=== PATIENT | female | born 1945 | race Caucasian/White ===

== ENCOUNTER 2017-05-16 15:21 | Emergency (ER) | payer MEDICARE ==
[~2017-05-16] VITALS: Ht 152.4 cm; Wt 75.3 kg
[~2017-05-16 15:21] MED LIST: BISOPROLOL-HCT1 EAC1 PO; CEROVITE SENIO1 EACH PO; LORAZEPAM1 MG PO; LUTEIN20 M1 PO; TRAMADOL HCL50 MG PO; ZOFRAN ODT4 MG SL; ZYRTEC10 MG PO
== END 2017-05-16 15:40 | disposition home or self-care (01) ==
LOC: ED 15:21
DX: J02.9 Acute pharyngitis, unspecified (principal)

== ENCOUNTER 2017-05-26 14:26 | Emergency (ER) | payer MEDICARE ==
[~2017-05-26] VITALS: Ht 152.4 cm; Wt 75.3 kg
== END 2017-05-26 15:19 | disposition home or self-care (01) ==
LOC: ED 14:26
DX: B34.9 Viral infection, unspecified (principal); I10 Essential (primary) hypertension; Z90.710 Acquired absence of both cervix and uterus; Z88.8 Allergy status to other drugs, medicaments and biological substances; Z79.899 Other long term (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
CPT/HCPCS: 99282

== ENCOUNTER 2019-08-07 12:59 | Emergency (ER) | payer MEDICARE ==
[~2019-08-07] VITALS: Ht 152.4 cm; Wt 75.3 kg
[~2019-08-07 12:59] MED LIST changes: +CEPHALEXIN500 MG PO; +ZITHROMAX250 MG PO
--- OUTSIDE RECORDS SUMMARY | 2019-08-07 13:02 | XMS ---
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 Jessica VISIT COUNT (12 MO.) 3 [facility] TOTAL 3 NOTE: Visits indicate total known visits. 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
[2019-08-07] MEDS ORDERED: CYCLOBENZAPRINE5 MG PO (13:21)
== END 2019-08-07 13:39 | disposition home or self-care (01) ==
LOC: ED 12:59
DX: J02.9 Acute pharyngitis, unspecified (principal)

== ENCOUNTER 2019-11-12 16:17 | Emergency (ER) | payer MEDICARE ==
[~2019-11-12] VITALS: Ht 152.4 cm; Wt 75.3 kg
[~2019-11-12 16:17] MED LIST changes: +CYCLOBENZAPRINE5 MG PO
--- OUTSIDE RECORDS SUMMARY | 2019-11-12 16:20 | XMS ---
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 ERaoul VISIT COUNT (12 MO.) Erasmo Freeman TOTAL 4 NOTE: Visits indicate total known visits. ED/UCC VISIT TRACKING (12 MO.) 11/12/2019 16:18 [facility] TYPE: Emergency COMPLAINT: - SOB 08/07/2019 13:00 [facility] TYPE: Emergency COMPLAINT: - THROAT PAIN AND SWELLING DIAGNOSES: - Acute pharyngitis, unspecified - Acute pharyngitis, unspecified 08/01/2019 20:19 [facility] TYPE: Emergency COMPLAINT: - POSS ALLERGIC REACTION DIAGNOSES: - Adverse effect of cephalosporins and other beta-lactam antibi - Pain in throat - Other prison (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 - Pain in throat - Essential (primary) hypertension 07/04/2019 19:59 [facility] [place] TYPE: Emergency COMPLAINT: - VAGINAL BLEEDING DIAGNOSES: - Polyp of vagina - Essential (primary) hypertension - Abnormal uterine and vaginal bleeding, unspecified - Other prison (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 INPATIENT VISIT TRACKING (12 MO.) No inpatient visits to display in this time frame [id number]
[2019-11-12] MEDS ORDERED: QVAR REDIHALE10.6 GM INH (17:22)
[2019-11-12] MEDS ORDERED: PREDNISONE20 MG PO (17:22)
[2019-11-12] MEDS ORDERED: VENTOLIN HFA18 GM INH (17:49)
[2019-11-12] MEDS ORDERED: SINGULAIR10 MG PO (17:50)
== END 2019-11-12 18:00 | disposition home or self-care (01) ==
LOC: ED 16:17
DX: J45.901 Unspecified asthma with (acute) exacerbation (principal); I10 Essential (primary) hypertension; Z88.1 Allergy status to other antibiotic agents; Z91.013 Allergy to seafood; Z88.8 Allergy status to other drugs, medicaments and biological substances; Z79.899 Other long term (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
CPT/HCPCS: 94664; 99283; J7512

== ENCOUNTER 2019-12-02 11:24 | Emergency (ER) | payer MEDICARE ==
[~2019-12-02] VITALS: Ht 152.4 cm; Wt 75.3 kg
[~2019-12-02 11:24] MED LIST changes: +PREDNISONE20 MG PO; +QVAR REDIHALE10.6 GM INH; +SINGULAIR10 MG PO; +VENTOLIN HFA18 GM INH
--- OUTSIDE RECORDS SUMMARY | 2019-12-02 11:26 | XMS ---
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 - 2 Visits in 30 Days CARE PROVIDERS JOSE ROBLES [facility] 07/05/2019-Current PHONE: [phone] KATIE SHERMAN Internal Medicine 08/08/2019-Current PHONE: [phone] Dot has no Care Guidelines for this patient. ERaoul VISIT COUNT (12 MO.) Tyshawn [facility] TOTAL 5 NOTE: Visits indicate total known visits. ED/UCC VISIT TRACKING (12 MO.) 12/02/2019 11:24 [facility] TYPE: Emergency COMPLAINT: - ALLERGIES 11/12/2019 16:18 [facility] TYPE: Emergency COMPLAINT: - SOB DIAGNOSES: - Allergy to seafood - Unspecified asthma with (acute) exacerbation - Allergy status to other antibiotic agents status - Other chest pain - Allergy status to other drugs, medicaments and biological sub - Other detention (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 - Essential (primary) hypertension 08/07/2019 13:00 [facility] [place] TYPE: Emergency COMPLAINT: - THROAT PAIN AND SWELLING DIAGNOSES: - Acute pharyngitis, unspecified - Acute pharyngitis, unspecified 08/01/2019 20:19 [facility] TYPE: Emergency COMPLAINT: - POSS ALLERGIC REACTION DIAGNOSES: - Adverse effect of cephalosporins and other beta-lactam antibi - Pain in throat - 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
[2019-12-02] MEDS ORDERED: LORAZEPAM0.5 MG PO (11:39)
[2019-12-02] MEDS ORDERED: IPRAT-ALBUT 0.5-3 ML INH (11:39)
--- NOTE | 2019-12-04 21:06 | PATH ---
[facility] [address] [place], [place] [address] Signed ORDERING PHYSICIAN: Charly Kirkpatrick MD PATIENT NAME: MARTIN WALSHE GENDER: Hien : 1945 SPECIMEN(S): No Source Given MOLECULAR PATHOLOGY RESULTS: SARS-CoV-2 Not Detected ADDITIONAL NOTES.: The [place] Fusion SARS-CoV-2 Assay is a multiplex real-time PCR (RT-PCR) in vitro diagnostic test intended for the qualitative detection of RNA from SARS-CoV-2 from individuals who meet COVID-19 clinical and/or epidemiological criteria. In general, SARS-CoV-2 RNA can be detected during the acute phase of infection. Positive results indicate the presence of SARS-CoV-2 RNA. Clinical correlation with patient history and other diagnostic information is necessary to determine patient infection status. Positive results do not rule out bacterial infection or co-infection with other viruses. Negative results do not preclude SARS-CoV-2 infection and should not be used as the sole basis for patient management decisions. Negative results must be combined with other clinical observations, patient history, and epidemiological information. The [place] Fusion SARS-CoV-2 Assay is not yet approved or cleared by the [place] FDA. When there are no FDA-approved or cleared tests available, and other criteria are met, FDA can make tests available under an emergency access mechanism called an Emergency Use Authorization (EUA). The EUA for this test is supported by the [place] of Health and Human Service's (HHS's) declaration that circumstances exist to justify the emergency use of in vitro diagnostics for the detection and/or diagnosis of the virus that causes COVID-19. This EUA will remain in effect for the duration of the COVID-19 declaration justifying emergency of IVDs, unless it is terminated or revoked by FDA, after which the test may no longer be used. The [place] Fusion SARS-CoV-2 Assay is for use only under EUA in US laboratories certified under the Clinical Laboratory Improvement Amendments of 1988 (CLIA) to perform high complexity tests. [facility] is certified under CLIA to perform high complexity PATIENT NAME: MARTIN WALSH PATHOLOGY DATE OF : 47 REPORT #: [id number] PHYSICIAN: ONEAL HERNÁNDEZ PCP: KATIE SHERMAN REPORT IS CONFIDENTIAL AND NOT TO BE RELEASED WITHOUT AUTHORIZATION [address] [address] Signed clinical laboratory testing. PERFORMING LABORATORY.: Molecular testing was performed by [facility] [address] [place], [place] [address] [address] (Clinical Supervisor: Alejo Briseno D.O.; CLIA#: [id number]) Diagnostician: System Interface Pathologist Electronically Signed 12/04/2019 Copies: ~ PATIENT NAME: MARTIN WALSH PATHOLOGY DATE OF : 47 REPORT #: [id number] PHYSICIAN: ONEAL HERNÁNDEZ PCP: KATIE SHERMAN REPORT IS CONFIDENTIAL AND NOT TO BE RELEASED WITHOUT AUTHORIZATION
== END 2019-12-02 12:28 | disposition home or self-care (01) ==
LOC: ED 11:24
DX: J45.909 Unspecified asthma, uncomplicated (principal); I10 Essential (primary) hypertension; Z88.1 Allergy status to other antibiotic agents; Z91.018 Allergy to other foods; Z88.8 Allergy status to other drugs, medicaments and biological substances; Z79.899 Other long term (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
CPT/HCPCS: 99283; C9803

== ENCOUNTER 2019-12-15 14:26 | Emergency (ER) | payer MEDICARE ==
[~2019-12-15] VITALS: Ht 152.4 cm; Wt 75.3 kg
[~2019-12-15 14:26] MED LIST changes: +IPRAT-ALBUT 0.5-3 ML INH; +LORAZEPAM0.5 MG PO
--- OUTSIDE RECORDS SUMMARY | 2019-12-15 14:28 | XMS ---
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 E.Zohaib VISIT COUNT (12 MO.) [address] [place] [address] TOTAL 6 NOTE: Visits indicate total known visits. ED/UCC VISIT TRACKING (12 MO.) 12/15/2019 14:26 [facility] TYPE: Emergency COMPLAINT: - FALL 12/02/2019 11:24 [facility] TYPE: Emergency COMPLAINT: - ALLERGIES DIAGNOSES: - Allergy status to other antibiotic agents status - Allergy to other foods - Other mcc (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 - Cough - Allergy status to other drugs, medicaments and biological sub - Essential (primary) hypertension - Unspecified asthma, uncomplicated 11/12/2019 16:18 [facility] TYPE: Emergency COMPLAINT: - SOB DIAGNOSES: - Allergy to seafood - Unspecified asthma with (acute) exacerbation - Allergy status to other antibiotic agents status - Other chest pain - Allergy status to other drugs, medicaments and biological sub - Other 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 (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 - Essential (primary) hypertension 08/07/2019 13:00 [facility] TYPE: Emergency COMPLAINT: - THROAT PAIN AND SWELLING DIAGNOSES: - Acute pharyngitis, unspecified - Acute pharyngitis, unspecified 08/01/2019 20:19 [facility] TYPE: Emergency COMPLAINT: - POSS ALLERGIC REACTION DIAGNOSES: - Adverse effect of cephalosporins and other beta-lactam antibi - Pain in throat - Other mcc (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 - Pain in throat - Essential (primary) hypertension 07/04/2019 19:59 [facility] TYPE: Emergency COMPLAINT: - VAGINAL BLEEDING DIAGNOSES: - Polyp of vagina - Essential (primary) hypertension - Abnormal uterine and vaginal bleeding, unspecified - Other mcc (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 INPATIENT VISIT TRACKING (12 MO.) No inpatient visits to display in this time frame [id number]
== END 2019-12-15 15:45 | disposition home or self-care (01) ==
LOC: ED 14:26
DX: S43.401A Unspecified sprain of right shoulder joint, initial encounter (principal); S80.02XA Contusion of left knee, initial encounter; S80.01XA Contusion of right knee, initial encounter; I10 Essential (primary) hypertension; J45.909 Unspecified asthma, uncomplicated; Z88.1 Allergy status to other antibiotic agents; Z88.8 Allergy status to other drugs, medicaments and biological substances; Z79.899 Other long term (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; W18.30XA Fall on same level, unspecified, initial encounter
CPT/HCPCS: 99283

== ENCOUNTER 2020-04-29 22:41 | Emergency (ER) | payer MEDICARE ==
[~2020-04-29] VITALS: Ht 152.4 cm; Wt 75.3 kg
--- OUTSIDE RECORDS SUMMARY | 2020-04-29 22:48 | XMS ---
PreManage Notification: MARTIN WALSH Security Certified Medical Dosimetrist Events No recent Security Events currently on file CRITERIA MET - [facility] CARE PROVIDERS MARGARET [facility] 07/05/2019-Current PHONE: [phone] KATIE SHERMAN Internal Medicine 08/08/2019-Current PHONE: [phone] Dot has no Care Guidelines for this patient. Care History Medical/Surgical 12/18/2019 [facility] - CHW CONTACTED PATIENT DUE TO RECENT FALL IN THE HOME- PATIENT STATED SHE HAS HER WHO IS AT HOME TAKING CARE OF HER. - PATIENT WILL BE CONTACTING HER PCP OFFICE BUT IT TAKES TIME TO BE SEEN - CHW SUGGESTED POSSIBLY CHANGING PROVIDERS TO LOCAL AREA IN [place]. PROVIDED PROVIDER AVAILABILITY-PATIENT STATED SHE WOULD LOOK INTO IT BUT IS NOT FEELING UP TO IT AT THE MOMENT. E.D. VISIT COUNT (12 MO.) [address] [facility] TOTAL 7 NOTE: Visits indicate total known visits. ED/UCC VISIT TRACKING (12 MO.) 04/29/2020 22:47 [facility] TYPE: Emergency COMPLAINT: - THROAT SWELLING 12/15/2019 14:26 [facility] TYPE: Emergency COMPLAINT: - FALL DIAGNOSES: - Fall on same level, unspecified, initial encounter - Pain in right shoulder - Essential (primary) hypertension - Contusion of right knee, initial encounter - Unspecified asthma, uncomplicated - Other correction (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 - Contusion of left knee, initial encounter - Allergy status to other antibiotic agents - Unspecified sprain of right shoulder joint, initial encounter - Allergy status to other drugs, medicaments and biological substances 12/02/2019 11:24 [facility] TYPE: Emergency COMPLAINT: - ALLERGIES DIAGNOSES: - Allergy status to other antibiotic agents - Contact with and (suspected) exposure to other viral communicable diseases - Allergy to other foods - Other correction (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 - Cough - Allergy status to other drugs, medicaments and biological substances - Essential (primary) hypertension - Unspecified asthma, uncomplicated 11/12/2019 16:18 [facility] TYPE: Emergency COMPLAINT: - SOB DIAGNOSES: - Allergy to seafood - Unspecified asthma with (acute) exacerbation - Allergy status to other antibiotic agents - Other chest pain - Allergy status to other drugs, medicaments and biological substances - Other oil heaterman (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 - Essential (primary) hypertension 08/07/2019 13:00 [facility] TYPE: Emergency COMPLAINT: - THROAT PAIN AND SWELLING DIAGNOSES: - Acute pharyngitis, unspecified - Acute pharyngitis, unspecified 08/01/2019 20:19 [facility] TYPE: Emergency COMPLAINT: - POSS ALLERGIC REACTION DIAGNOSES: - Adverse effect of cephalosporins and other beta-lactam antibiotics, initial encounter - Pain in throat - Other oil heaterman (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
[2020-04-29] MEDS ORDERED: METOPROLOL SUCC50 MG PO (23:09)
[2020-04-29] MEDS ORDERED: CARBAMAZEPINE200 M3 PO (23:09)
[2020-04-29] MEDS ORDERED: ATIVAN0.5 MG PO (23:53)
== END 2020-04-30 | disposition home or self-care (01) ==
LOC: ED 22:41
DX: G89.29 Other chronic pain (principal); R68.84 Jaw pain; Z76.0 Encounter for issue of repeat prescription; I10 Essential (primary) hypertension; J45.909 Unspecified asthma, uncomplicated; Z88.1 Allergy status to other antibiotic agents; Z88.8 Allergy status to other drugs, medicaments and biological substances; Z91.011 Allergy to milk products; Z91.018 Allergy to other foods; Z79.899 Other long term (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
CPT/HCPCS: 99283

== ENCOUNTER 2020-11-17 17:45 | Emergency (ER) | payer MEDICARE ==
[~2020-11-17] VITALS: Ht 152.4 cm; Wt 75.3 kg
[~2020-11-17 17:45] MED LIST changes: +ATIVAN0.5 MG PO; +CARBAMAZEPINE200 M3 PO; +METOPROLOL SUCC50 MG PO
--- OUTSIDE RECORDS SUMMARY | 2020-11-17 17:48 | XMS ---
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 Care History Medical/Surgical 12/18/2019 [facility] - CHW CONTACTED PATIENT DUE TO RECENT FALL IN THE HOME- PATIENT STATED SHE HAS HER WHO IS AT HOME TAKING CARE OF HER. - PATIENT WILL BE CONTACTING HER PCP OFFICE BUT IT TAKES TIME TO BE SEEN - CHW SUGGESTED POSSIBLY CHANGING PROVIDERS TO LOCAL AREA IN [place]. PROVIDED PROVIDER AVAILABILITY-PATIENT STATED SHE WOULD LOOK INTO IT BUT IS NOT FEELING UP TO IT AT THE MOMENT. E.D. VISIT COUNT (12 MO.) 4 [facility] TOTAL 4 NOTE: Visits indicate total known visits. 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 - Unspecified asthma, uncomplicated - Jaw pain 12/15/2019 14:26 [facility] [place] TYPE: Emergency COMPLAINT: - FALL DIAGNOSES: - Fall on same level, unspecified, initial encounter - Pain in right shoulder - Essential (primary) hypertension - Contusion of right knee, initial encounter - Unspecified asthma, uncomplicated - Other prison (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 - Contusion of left [...] - Allergy to other foods - Other prison (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 - Cough - Allergy status to other drugs, medicaments and biological substances - Essential (primary) hypertension - Unspecified asthma, uncomplicated INPATIENT VISIT TRACKING (12 MO.) No inpatient visits to display in this time frame [id number]
[2020-11-17] MEDS ORDERED: L-LYSINE500 M2 PO (18:04)
[2020-11-17] MEDS ORDERED: MONTELUKAST SOD10 MG PO (18:05)
[2020-11-17] MEDS ORDERED: BACLOFEN10 MG PO (18:05)
[2020-11-17] MEDS ORDERED: MELATONIN5 M2 PO (18:06)
[2020-11-17] MEDS ORDERED: METOPROLOL SUC100 MG PO (18:07)
[2020-11-17] MEDS ORDERED: COD LIVER OIL1 EAC2 PO (18:08)
[2020-11-17] MEDS ORDERED: VITAMIN C1000 MG PO (18:09)
[2020-11-17] MEDS ORDERED: VITAMIN D3125 MC1 PO (18:09)
== END 2020-11-17 19:23 | disposition home or self-care (01) ==
LOC: ED 17:45
DX: L50.9 Urticaria, unspecified (principal); I10 Essential (primary) hypertension; J45.909 Unspecified asthma, uncomplicated; Z88.1 Allergy status to other antibiotic agents; Z88.8 Allergy status to other drugs, medicaments and biological substances; Z91.011 Allergy to milk products; Z91.018 Allergy to other foods; Z79.899 Other long term (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
CPT/HCPCS: 99282; Q0163

== ENCOUNTER 2021-04-07 12:47 | Emergency (ER) | payer MEDICARE ==
[~2021-04-07] VITALS: Ht 152.4 cm; Wt 75.3 kg
[~2021-04-07 12:47] MED LIST changes: +BACLOFEN10 MG PO; +COD LIVER OIL1 EAC2 PO; +L-LYSINE500 M2 PO; +MELATONIN5 M2 PO; +METOPROLOL SUC100 MG PO; +MONTELUKAST SOD10 MG PO; +VITAMIN C1000 MG PO; +VITAMIN D3125 MC1 PO
== END 2021-04-07 20:00 | disposition home or self-care (01) ==
LOC: ED 12:47
DX: N82.3 Fistula of vagina to large intestine (principal); I10 Essential (primary) hypertension; J45.909 Unspecified asthma, uncomplicated; Z88.1 Allergy status to other antibiotic agents; Z88.8 Allergy status to other drugs, medicaments and biological substances; Z91.011 Allergy to milk products; Z91.018 Allergy to other foods; Z79.899 Other long term (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
CPT/HCPCS: 99283

== ENCOUNTER 2022-07-24 01:01 | Emergency (ER) | payer MEDICARE ==
[~2022-07-24] VITALS: Ht 152.4 cm; Wt 76.2 kg
[~2022-07-24 01:01] MED LIST changes: +MACROBID 100 M100 MG PO; +TOPICAINE113 GM TOP
--- OUTSIDE RECORDS SUMMARY | 2022-07-24 01:02 | XMS ---
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 Care History Medical/Surgical 04/09/2021 [facility] - CHW CONTACTED PATIENT- PATIENT STATED SHE WAS IN CONTACT WITH PCP DR SHERMAN- HE IS SENDING HER REFERRAL TO THE COLORECTAL SURGEON IN [facility] . - PATIENT STATED SHE IS FEELING MUCH BETTER AND WILL CONTACT CHW IF ANY PROBLEMS SHOULD OCCUR WITH THE REFERRAL TO THE COLORECTAL SURGEON. 04/08/2021 [facility] - W RECVD CASE MANAGEMENT CONSULT- HELP PATIENT WITH FOLLOW UP TO A COLORECTAL SURGEON. - CHW CALLED PATIENT 2X- [phone]- NO ANSWER AND NO VOICEMAIL SET UP. 12/18/2019 [facility] - W CONTACTED PATIENT DUE TO RECENT FALL IN THE HOME- PATIENT STATED SHE HAS HER WHO IS AT HOME TAKING CARE OF HER. - PATIENT WILL BE CONTACTING HER PCP OFFICE BUT IT TAKES TIME TO BE SEEN - CHW SUGGESTED POSSIBLY CHANGING PROVIDERS TO LOCAL AREA IN [place]. PROVIDED PROVIDER AVAILABILITY-PATIENT STATED SHE WOULD LOOK INTO IT BUT IS NOT FEELING UP TO IT AT THE MOMENT. E.D. VISIT COUNT (12 MO.) 2 [facility] Freeman TOTAL 2 NOTE: Visits indicate total known visits. ED/UCC VISIT TRACKING (12 MO.) 07/24/2022 01:01 [facility] TYPE: Emergency COMPLAINT: - URINE PROBLEM 07/08/2022 10:35 [facility] TYPE: Emergency COMPLAINT: - VAGINAL PAIN DIAGNOSES: - Allergy to milk products - Allergy status to other antibiotic agents - Essential (primary) hypertension - Allergy status to other drugs, medicaments and biological substances - Unspecified asthma, uncomplicated - Allergy to other foods - Other termite treater (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 - Foreign body in urethra, initial encounter INPATIENT VISIT TRACKING (12 MO.) 07/28/2021 07:25 [facility] Rhiannon ZHANG TYPE: Surgery DIAGNOSES: - Fistula of vagina to large intestine [id number]
[2022-07-24] MEDS ORDERED: NITROFURANTOIN100 M1 PO (01:20)
[2022-07-24] MEDS ORDERED: HYDROCODON-ACE1 EA10 PO (02:33)
== END 2022-07-24 03:03 | disposition home or self-care (01) ==
LOC: ED 01:01
DX: T19.0XXA Foreign body in urethra, initial encounter (principal); I10 Essential (primary) hypertension; J45.909 Unspecified asthma, uncomplicated; Z88.1 Allergy status to other antibiotic agents; Z91.010 Allergy to peanuts; Z91.011 Allergy to milk products; Z88.8 Allergy status to other drugs, medicaments and biological substances; Z79.899 Other long term (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
CPT/HCPCS: 51701; 99283-25; A9270

== ENCOUNTER 2022-08-16 17:10 | Emergency (ER) | payer MEDICARE ==
[~2022-08-16] VITALS: Ht 152.4 cm; Wt 76.6 kg
[~2022-08-16 17:10] MED LIST changes: +HYDROCODON-ACE1 EA10 PO; +NITROFURANTOIN100 M1 PO
--- OUTSIDE RECORDS SUMMARY | 2022-08-16 17:12 | XMS ---
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 Care History Medical/Surgical 04/09/2021 [facility] - CHW CONTACTED PATIENT- PATIENT STATED SHE WAS IN CONTACT WITH PCP DR SHERMAN- HE IS SENDING HER REFERRAL TO THE COL[facility]ECTAL SURGEON IN [facility] . - PATIENT STATED SHE IS FEELING MUCH BETTER AND WILL CONTACT CHW IF ANY PROBLEMS SHOULD OCCUR WITH THE REFERRAL TO THE COLORECTAL SURGEON. 04/08/2021 [facility] - W RECVD CASE MANAGEMENT CONSULT- HELP PATIENT WITH FOLLOW UP TO A COLORECTAL SURGEON. - CHW CALLED PATIENT 2X- [phone]- NO ANSWER AND NO VOICEMAIL SET UP. 12/18/2019 [facility] - W CONTACTED PATIENT DUE TO RECENT FALL IN THE HOME- PATIENT STATED SHE HAS HER WHO IS AT HOME TAKING CARE OF HER. - PATIENT WILL BE CONTACTING HER PCP OFFICE BUT IT TAKES TIME TO BE SEEN - CHW SUGGESTED POSSIBLY CHANGING PROVIDERS TO LOCAL AREA IN [place]. PROVIDED PROVIDER AVAILABILITY-PATIENT STATED SHE WOULD LOOK INTO IT BUT IS NOT FEELING UP TO IT AT THE MOMENT. E.D. VISIT COUNT (12 MO.) 3 [facility] Freeman TOTAL 3 NOTE: Visits indicate total known visits. ED/UCC VISIT TRACKING (12 MO.) 08/16/2022 17:11 [facility] TYPE: Emergency COMPLAINT: - ABDOMINAL PAIN 07/24/2022 01:01 [facility] TYPE: Emergency COMPLAINT: - URINE PROBLEM DIAGNOSES: - Unspecified asthma, uncomplicated - Allergy status to other antibiotic agents - Allergy status to other drugs, medicaments and biological substances - Allergy to milk products - Essential (primary) hypertension - Other fci (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 - Allergy to peanuts - Foreign body in urethra, initial encounter 07/08/2022 10:[address] [facility] [place] TYPE: Emergency COMPLAINT: - VAGINAL PAIN DIAGNOSES: - Other fci (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 - Foreign body in urethra, initial encounter - Allergy to milk products - Allergy status to other antibiotic agents - Essential (primary) hypertension - Allergy status to other drugs, medicaments and biological substances - Unspecified asthma, uncomplicated - Allergy to other foods INPATIENT VISIT TRACKING (12 MO.) No inpatient visits to display in this time frame [id number]
[2022-08-16] MEDS ORDERED: BACTRIM DS TAB1 EACH PO (21:19)
[2022-08-16] MEDS ORDERED: PYRIDIUM100 MG PO (21:19)
[2022-08-16 21:51] VITALS: BP 102/88
== END 2022-08-16 21:52 | disposition home or self-care (01) ==
LOC: ED 17:10
DX: N39.0 Urinary tract infection, site not specified (principal); I10 Essential (primary) hypertension; Z88.1 Allergy status to other antibiotic agents; Z91.011 Allergy to milk products; Z88.8 Allergy status to other drugs, medicaments and biological substances; Z79.899 Other long term (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
CPT/HCPCS: 81001; A9270

== ENCOUNTER 2024-02-07 14:50 | Emergency (ER) | payer MEDICARE ==
[~2024-02-07] VITALS: Ht 152.4 cm; Wt 67.7 kg
[~2024-02-07 14:50] MED LIST changes: +BACTRIM DS TAB1 EACH PO; +PYRIDIUM100 MG PO
[2024-02-07 15:21] LABS: BILIRUBIN, URINE NEGATIVE (negative); BLOOD/HGB, URINE LARGE (Negative); KETONE, URINE TRACE (Negative); LEUK ESTERASE, URINE MODERATE (negative); NITRITE, URINE NEGATIVE (negative); PH, URINE 7.5 (5-7)
[2024-02-07] MEDS ORDERED: CARBAMAZEPINE100 M1 PO (15:23)
[2024-02-07 15:31] LABS: BACTERIA, URINE 4+ /hpf (negative); CASTS, URINE NONE SEEN \\lpf; COLLECTION TYPE, URINE CLEAN CATCH; CRYSTALS, URINE NONE SEEN (0-1+); EPITHELIAL CELLS, URINE SQUAMOUS 1+ /lpf (0-1+); WHITE BLOOD CELLS, URINE >50 /HPF (0-5)
[2024-02-07 15:32] LABS: RED BLOOD CELLS, URINE 0-1 /hpf (0-5); REFLEX CULTURE, URINE Yes (No)
[2024-02-07] MEDS ORDERED: ondansetron HCL 4 MG/2 ML VIAL IV ONE (16:00)
[2024-02-07] MEDS ORDERED: levoFLOXacin 500 MG/100 ML BAG IV ONE (16:00)
[2024-02-07] MEDS ORDERED: KETOROLAC TROMETHAMINE 30 MG/ML VIAL IV ONE (16:00)
[2024-02-07 16:17] LABS: EOSINOPHILS 2.2 % (0-6); HEMATOCRIT 42.7 % (35.0-50.0); HEMOGLOBIN 14.4 g/dL (12.0-18.0); LYMPHOCYTES 23.6 % (24-44); MCH 31.6 (27-36); MCHC 33.7 g/dl (30-36); MCV 93.7 fl (81-99); MONOCYTES 5.9 % (0-12); NEUTROPHILS 67.3 % (39-80); PLATELET COUNT 197 K/uL (140-440); RBC 4.55 M/ul (4.3-5.7); RDW 13.5 (10.5-15.0)
[2024-02-07 16:32] LABS: ALBUMIN 3.6 g/dL (3.4-5.0); ALBUMIN/GLOBULIN RATIO 1.13 (1.1-2.4); ANION GAP 9.1 (7-21); BILIRUBIN, TOTAL 0.3 ng/dL (0.2-1.0); BUN/CREATININE RATIO 15.11 (6.0-28.6); CALCIUM 9.1 mg/dL (8.5-10.1); CREATININE, SERUM 0.86 mg/dL (0.55-1.02); POTASSIUM 4.1 mmol/L (3.5-5.1); PROTEIN, TOTAL 6.8 g/dL (6.4-8.2)
[2024-02-07] MEDS ORDERED: LEVOFLOXACIN500 MG PO (18:37)
[2024-02-07 18:45] VITALS: BP 196/97
== END 2024-02-07 18:47 | disposition home or self-care (01) ==
LOC: ED 14:50
PROVIDERS: Emergency Medicine
DX: N39.0 Urinary tract infection, site not specified (principal); N21.0 Calculus in bladder; R31.9 Hematuria, unspecified; I10 Essential (primary) hypertension; J45.909 Unspecified asthma, uncomplicated; Z91.011 Allergy to milk products; Z91.018 Allergy to other foods; Z88.1 Allergy status to other antibiotic agents; Z88.8 Allergy status to other drugs, medicaments and biological substances; Z79.899 Other long term (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
CPT/HCPCS: 36415; 74176; 80053; 81001; 85025; 87088; 96365; 96375; 99284-25; J1885; J1956; J2405

== ENCOUNTER 2024-03-28 23:23 | Emergency (ER) | payer MEDICARE ==
[~2024-03-28] VITALS: Ht 152.4 cm; Wt 77.7 kg
[~2024-03-28 23:23] MED LIST changes: +CARBAMAZEPINE100 M1 PO; +LEVOFLOXACIN500 MG PO
[2024-03-28] MEDS ORDERED: INHALER, ASSIST DEVICES 1 EACH SPACER MISC ONE (23:45)
[2024-03-28] MEDS ORDERED: ALBUTEROL/IPRATROPIUM 3 ML NEB INH ONE (23:45)
[2024-03-28] MEDS ORDERED: ALBUTEROL SULFATE 8 GM HOME.PACK INH ONE (23:45)
[2024-03-29 00:22] LABS: INFLUENZA B NAA NEGATIVE (NEGATIVE); RESPIRATORY SYNCYTIAL VIR NAA NEGATIVE (NEGATIVE)
[2024-03-29] MEDS ORDERED: VENTOLIN HFA18 GM INH (00:35)
[2024-03-29] MEDS ORDERED: ALBUTEROL2.5 MG/3 M INH (00:35)
[2024-03-29] MEDS ORDERED: ALBUTEROL SULFATE 0.083% 3 ML HOME.PACK INH PRN (00:45)
[2024-03-29] MEDS ORDERED: methylPREDNISolone 4 MG HOME.PACK PO ONE (00:45)
[2024-03-29 01:00] VITALS: BP 189/95
== END 2024-03-29 01:00 | disposition home or self-care (01) ==
LOC: ED 23:23
PROVIDERS: Family Medicine
DX: J45.901 Unspecified asthma with (acute) exacerbation (principal); I10 Essential (primary) hypertension; Z88.1 Allergy status to other antibiotic agents; Z91.011 Allergy to milk products; Z88.7 Allergy status to serum and vaccine; Z88.8 Allergy status to other drugs, medicaments and biological substances; Z91.018 Allergy to other foods; Z79.899 Other long term (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
CPT/HCPCS: 71045; 87502; 94640; 94664; 99284-25; U0002

== ENCOUNTER 2024-04-14 16:17 | Emergency (ER) | payer MEDICARE ==
[~2024-04-14] VITALS: Ht 152.4 cm; Wt 76.1 kg
[~2024-04-14 16:17] MED LIST changes: +ALBUTEROL2.5 MG/3 M INH
[2024-04-14] MEDS ORDERED: ALBUTEROL/IPRATROPIUM 3 ML NEB INH ONE (18:00)
[2024-04-14] MEDS ORDERED: methylPREDNISolone SOD SUCC 125 MG/2 ML VIAL IV ONE (18:00)
[2024-04-14 18:52] LABS: BASOPHILS 1.3 % (0-2); EOSINOPHILS 2.2 % (0-6); HEMOGLOBIN 14.9 g/dL (12.0-18.0); LYMPHOCYTES 27.9 % (24-44); MCH 32.7 (27-36); MCHC 34.6 g/dl (30-36); MCV 94.3 fl (81-99); MONOCYTES 7.2 % (0-12); NEUTROPHILS 61.4 % (39-80); PLATELET COUNT 222 K/uL (140-440); RBC 4.56 M/ul (4.3-5.7); RDW 13.3 (10.5-15.0)
[2024-04-14 19:13] LABS: ALBUMIN 3.8 g/dL (3.4-5.0); ALBUMIN/GLOBULIN RATIO 1.19 (1.1-2.4); ANION GAP 12.5 (7-21); BILIRUBIN, TOTAL 0.5 ng/dL (0.2-1.0); BUN/CREATININE RATIO 12.98 (6.0-28.6); CALCIUM 8.9 mg/dL (8.5-10.1); CREATININE, SERUM 0.77 mg/dL (0.55-1.02); POTASSIUM 3.5 mmol/L (3.5-5.1)
[2024-04-14 20:17] LABS: INFLUENZA B NAA NEGATIVE (NEGATIVE); RESPIRATORY SYNCYTIAL VIR NAA NEGATIVE (NEGATIVE)
[2024-04-14 21:13] VITALS: BP 195/90
--- NOTE | 2024-04-15 19:37 | EKG ---
[facility] [address] [place], [place] [address] Signed Sinus bradycardia Moderate voltage criteria for LVH, may be normal variant ( R in aVL , Ramsay product ) Borderline ECG No previous ECGs available Confirmed by Peter Harris MD ([id number]) on 04/15/2024 7:36:47 PM Electronically Signed By: PETER HARRIS MD 04/15/241936 PATIENT NAME: LOUIE WALSHOlga Lidia BARAHONAE Electrocardiogram DATE OF : 47 PHYSICIAN: PETER HARRIS MD REPORT #: [id number] REPORT IS CONFIDENTIAL AND NOT TO BE RELEASED WITHOUT AUTHORIZATION
== END 2024-04-14 21:13 | disposition home or self-care (01) ==
LOC: ED 16:17
PROVIDERS: Emergency Medicine
DX: B34.9 Viral infection, unspecified (principal); I10 Essential (primary) hypertension; J45.909 Unspecified asthma, uncomplicated; Z88.7 Allergy status to serum and vaccine; Z88.1 Allergy status to other antibiotic agents; Z91.011 Allergy to milk products; Z91.018 Allergy to other foods; Z88.8 Allergy status to other drugs, medicaments and biological substances; Z79.899 Other long term (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
CPT/HCPCS: 36415; 71045; 80053; 83880; 84484; 85025; 87502; 93005; 93010; 94640; 99285-25; U0002